=== PATIENT | male | born 1945 | race Hispanic/Latino ===

== ENCOUNTER 2021-07-02 13:50 | Emergency (ER) | payer OTHER, MEDICARE ==
[~2021-07-02] VITALS: Ht 175.3 cm; Wt 97.5 kg
[2021-07-02 14:56] LABS: BASOPHILS % (AUTO) 0.5 % (0.0-5.0); EOSINOPHILS % (AUTO) 2.4 % (0.0-8.0); HEMATOCRIT 38.1 % (42-54); LYMPHOCYTES % (AUTO) 26.8 % (21.0-51.0); MEAN CORPUSCULAR HEMOGLOBIN 30.7 pg (27.0-33.0); MEAN CORPUSCULAR HGB CONC 33.9 g/dL (32.0-36.0); MEAN CORPUSCULAR VOLUME 90.7 fL (79-99); MONOCYTES % (AUTO) 10.8 % (3.0-13.0); NEUTROPHILS % (AUTO) 59.2 % (40.0-77.0); PLATELET COUNT (AUTO) 269 K/uL (130-400); RED CELL DISTRIBUTION WIDTH 12.2 % (11.0-15.5); WHITE BLOOD COUNT (AUTO) 9.3 K/uL (4.8-10.8)
[2021-07-02] MEDS ORDERED: CEFTRIAXONE 1G VIAL IVP ONE (15:00)
[2021-07-02] MEDS ORDERED: MORPHINE 2 MG SYG IVP ONE (15:00)
[2021-07-02] MEDS ORDERED: ONDANSETRON 4MG INJ IVP ONE (15:00)
[2021-07-02] MEDS ORDERED: KETOROLAC 15MG/ML VIAL (15MG/ML) IV ONE (15:00)
[2021-07-02 15:08] LABS: CREATININE 1.1 mg/dL (0.5-1.5); POTASSIUM 5.6 mmol/L (3.5-5.1)
[2021-07-02 15:12] LABS: ALBUMIN 3.5 g/dL (3.5-5.0); BILIRUBIN,TOTAL 0.5 mg/dL (0.2-1.0); TOTAL PROTEIN, SERUM 7.4 g/dL (6.0-8.3)
[2021-07-02] MEDS ORDERED: 0.9%NACL 1000ML 1,000 ML IV ONE ×2 (16:14→16:30)
[2021-07-02] MEDS ORDERED: INSULIN HUMULIN R 100 UNIT/ML 3ML ONE (16:17)
[2021-07-02] MEDS ORDERED: INSULIN HUMULIN R 100 UNIT/ML 3ML IV ONE (16:30)
[2021-07-02] MEDS ORDERED: ACET1TAB25 PO (17:24)
[2021-07-02] MEDS ORDERED: IBUP-2070 PO (17:24)
[2021-07-02] MEDS ORDERED: CLIN-141 PO (17:24)
[2021-07-02 17:30] VITALS: BP 118/76
== END 2021-07-02 17:41 | disposition home or self-care (01) ==
LOC: EDH 13:50 → EDSEX 13:50 → EDH 17:41
DX: L02.212 Cutaneous abscess of back [any part, except buttock and flank] (principal); E11.65 Type 2 diabetes mellitus with hyperglycemia; E78.00 Pure hypercholesterolemia, unspecified; I10 Essential (primary) hypertension; I25.10 Atherosclerotic heart disease of native coronary artery without angina pectoris; Z79.1 Long term (current) use of non-steroidal anti-inflammatories (NSAID); Z79.4 Long term (current) use of insulin; Z79.899 Other long term (current) drug therapy
CPT/HCPCS: 36415; 80053; 82948; 85025; 96361; 96374; 96375; 99284; J0696; J1815; J1885; J2405; J7030